=== PATIENT | male | born 1960 | race Caucasian/White ===

== ENCOUNTER 2018-05-15 06:09 | Emergency (ER) | payer OTHER ==
[2018-05-15 06:20] VITALS: BP 148/93
[2018-05-15] MEDS ORDERED: LIDOCAINE 5% (700 MG) TRANSDERMAL ADH..PATCH TP ONE (07:22)
--- NOTE | 2018-05-15 07:25 | ER Document Report ---
ED Extremity Problem, Lower - General Chief Complaint: Knee Pain Stated Complaint: KNEE PAIN Time Seen by Provider: 05/15/18 07:04 - HPI Patient complains to provider of: Swelling - 4-year-old male with history significant for a previous Achilles tendon rupture in his left leg, he presents after attempting to adjust his grandson in bed last night and feeling what felt like excruciating pain behind the right knee immediately thereafter. He tried to rest however today he has had some worsening pain and made it difficult for him to walk with a normal gait he denies any previous prolonged immobility, previous blood clot, history of smoking, swelling or pain numbness in the lower extremity. - Related Data Allergies/Adverse Reactions: No Known Allergies Allergy (Verified 05/15/18 06:36) Past Medical History - General Information source: Patient - Social History Smoking Status: Never Smoker Frequency of alcohol use: None Drug Abuse: None Family History: Reviewed & Not Pertinent Patient has suicidal ideation: No Patient has homicidal ideation: No - Past Medical History Cardiac Medical History: Reports: Hx Hypercholesterolemia, Hx Hypertension Renal/ Medical History: Denies: Hx Peritoneal Dialysis GI Medical History: Reports: Hx Gastroesophageal Reflux Disease Past Surgical History: Reports: Hx Orthopedic Surgery - left achilles tendon repair Review of Systems - Review of Systems -: Yes All other systems reviewed and negative Physical Exam - Vital signs Vitals: Temp Pulse Resp BP Pulse Ox 97.7 F 76 16 148/93 H 100 05/15/18 06:19 05/15/18 06:19 05/15/18 06:19 05/15/18 06:19 05/15/18 06:19 - General General appearance: Appears well In distress: None - HEENT Head: Normocephalic Eyes: Normal Conjunctiva: Normal Cornea: Normal - Respiratory Respiratory status: No respiratory distress Chest status: Nontender Breath sounds: Normal Chest palpation: Normal - Cardiovascular Rhythm: Regular Heart sounds: Normal auscultation Murmur: No - Abdominal Inspection: Normal - Back Back: Normal - Extremities General upper extremity: Nontender, Normal temperature General lower extremity: Other - The lower extremities are symmetric, there is no tenderness to palpation of the pelvis, the pelvis is stable There is normal range of motion at the hips in the quadriceps as well as the hamstrings bilaterally with 5 out of 5 strength There is intact sensation distally bilaterally 5 out of 5 strength in the ankle flexors and extensors There is tenderness to palpation along the pes ancerin of the right lower extremity, there is no palpable defect, there is no obvious cords or large blood vessels, Negative Blake test bilaterally Strong DP pulse bilaterally brisk capillary refill in the toes bilaterally - Psychological Associated symptoms: Normal affect Course - Re-evaluation Re-evalutation: 05/16/18 08:36 This 58-year-old man presents for exertional pain behind the right knee which developed while attempting to move his grandson this morning. The pain is primarily behind the right knee, he still able to ambulate with some discomfort. He has had a torn Achilles on the left side in the past. He did not have any twists or obvious pops during this says that he felt just excruciating pain in the knee. Examination the patient does have tenderness along the hamstrings as a taper to the pes without any obvious defect. Is a negative Blake test bilaterally Skin a strong DP pulse. With this patient likely has a muscle rupture or strain in the hamstrings. Given that that is the case will plan for this patient undergo conservative treatment utilizing NSAIDs, ice, early movement and mobility and follow-up with orthopedics as necessary. Patient is comfortable with this plan at this time deferred any imaging at this time deferred any use of crutches. - Vital Signs Vital signs: Temp Pulse Resp BP Pulse Ox 97.7 F 76 16 148/93 H 100 05/15/18 06:19 05/15/18 06:19 05/15/18 06:19 05/15/18 06:19 05/15/18 06:19 Discharge - Discharge Clinical Impression: Muscle strain Gastrocnemius strain Qualifiers: Encounter type: initial encounter Laterality: right Qualified Code(s): S86.111A - Strain of other muscle(s) and tendon(s) of posterior muscle group at lower leg level, right leg, initial encounter Condition: Good Disposition: HOME, SELF-CARE Instructions: Ice & Elevation ([facility]) Additional Instructions: Your seen today in the emergency department for your strained or pulled muscle. Use ice as well as ibuprofen to help with the pain in your calf. Follow-up with an orthopedist at home once you arrive. Return here in case of worsening swelling or pain, inability to walk. Prescriptions: Ibuprofen 400 mg PO TID #30 capsule Lidocaine HCl [Xylocaine 5% Ointment 35.44 gm] 35.44 applic TP BID #1 tube Forms: Elevated Blood Pressure
== END 2018-05-15 07:39 | disposition home or self-care (01) ==
LOC: ER 06:09
DX: S86.111A Strain of other muscle(s) and tendon(s) of posterior muscle group at lower leg level, right leg, initial encounter (principal); X58.XXXA Exposure to other specified factors, initial encounter; I10 Essential (primary) hypertension; Z87.828 Personal history of other (healed) physical injury and trauma
CPT/HCPCS: 99283